=== PATIENT | female | born 1960 | race Caucasian/White ===

== ENCOUNTER → 2021-06-03 | Outpatient (CLI) | payer OTHER | LOC: M.LAB 05-06 13:30 → M.MRI 05-06 14:30 → M.LAB 05-14 10:30 → M.MRI 13:30 | PROVIDERS: ATTEND Anesthesiology Pain Medicine | DX: M50.123 Cervical disc disorder at C6-C7 level with radiculopathy (principal); M48.02 Spinal stenosis, cervical region; M25.78 Osteophyte, vertebrae ==